=== PATIENT | female | born 1990 | race Caucasian/White ===

== ENCOUNTER 2017-11-05 21:03 | Emergency (ER) | payer MEDICAID, SELFPAY ==
[2017-11-05 21:06] VITALS: BP 147/80; PULSE 104; RESP 20; TEMP 36.7; O2SAT 100; BMI 24.6
--- NOTE | 2017-11-05 21:40 | RAD_ITS ---
STUDY: X-RAY - UNILATERAL RIBS ( RIGHT ) WITH CHEST REASON FOR EXAM: Female, 27 years old. Right-sided rib and chest pain TECHNIQUE - RIBS: 4 view(s) of the ribs. TECHNIQUE - CHEST: Single PA view of the chest. COMPARISON: None. FINDINGS - RIBS: Normal visualized ribs without a demonstrated fracture. FINDINGS - CHEST: The lungs are clear and expanded. There is no demonstrated pleural abnormality. Normal size heart. Normal mediastinum and cassi. Normal visualized pulmonary arteries. Normal visualized aortic arch and descending thoracic aorta. Normal visualized thoracic spine. Normal visualized ribs, clavicles, and shoulders. There is no demonstrated abnormality of the visualized soft tissue structures of the upper abdomen. RAD/Ribs Uni Min 3V w/PA Chest IMPRESSION: RIBS: Normal x-ray examination of the ribs. CHEST: Normal x-ray examination of the chest. Electronically Signed: Tin Layne MD at 21:56 EDT , Service support ,
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
--- NOTE | 2017-11-05 22:47 | ED.DEP ---
ED Disposition - Plan for ED Patient: Chief Complaint: Chest Other Instructions: ED Contusion Chest Wall, ED Dermatitis Non Specific Rash Prescriptions: Hydrocodone Bitart/Apap 5-325 [[place] 5MG-325MG] 1 tab PO Q4H PRN PRN 2 Days #10 tab PRN Reason: Pain Prednisone [Deltasone] 20 mg PO BID #10 tab Cyclobenzaprine [Flexeril] 10 mg PO TID PRN #20 tab PRN Reason: Muscle Spasm Referrals: Patricia Hernandez, MASK LAYOUT DESIGNER-C [Primary Care Provider] - 5-7 Days
--- NOTE | 2017-11-05 22:51 | DCINST.ED_ITS ---
ED Disposition - Plan for ED Patient: Chief Complaint: Chest Other Instructions: ED Contusion Chest Wall, ED Dermatitis Non Specific Rash Prescriptions: Hydrocodone Bitart/Apap 5-325 [[place] 5MG-325MG] 1 tab PO Q4H PRN PRN 2 Days #10 tab PRN Reason: Pain Prednisone [Deltasone] 20 mg PO BID #10 tab Cyclobenzaprine [Flexeril] 10 mg PO TID PRN #20 tab PRN Reason: Muscle Spasm Referrals: Patricia Hernandez, IGNITION SPECIALIST-C [Primary Care Provider] - 5-7 Days
[2017-11-05] MEDS: HYDROcodone Bitartrate/Apap 5/325 Tablet PO (22:54)
== END 2017-11-05 22:56 | disposition home or self-care (01) ==
LOC: ED 21:58
PROVIDERS: Emergency Provider Emergency Medicine; Family Provider Nurse Practitioner Family; PCP Nurse Practitioner Family
DX: S20.211A Contusion of right front wall of thorax, initial encounter (principal); L30.9 Dermatitis, unspecified; V89.2XXA Person injured in unspecified motor-vehicle accident, traffic, initial encounter; Y93.9 Activity, unspecified; Y92.9 Unspecified place or not applicable; F90.9 Attention-deficit hyperactivity disorder, unspecified type; Z79.899 Other long term (current) drug therapy; Z72.0 Tobacco use
CPT/HCPCS: 71101; 99282

== ENCOUNTER 2019-01-22 13:07 | Emergency (ER) | payer SELFPAY ==
[2019-01-22 13:08] VITALS: BP 129/73; PULSE 110; RESP 18; TEMP 197.6; TEMP 92; O2SAT 100; BMI 23.2
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
[2019-01-22 13:34] VITALS: RESP 16
--- NOTE | 2019-01-22 13:40 | RAD_ITS ---
STUDY: X-RAY - RIGHT FOOT CLINICAL: Female, 28 years old. [place]. TECHNIQUE: 3 view(s) of the foot. COMPARISON: None. FINDINGS: Normal talus, calcaneus, and tarsal bones. Normal visualized subtalar, talonavicular, calcaneocuboid, tarsal and tarsometatarsal articulations. Normal metatarsi. Normal metatarsophalangeal joint of the great toe. Normal tibial and fibular sesamoid bones. Normal interphalangeal joint of the great toe. Normal phalanges of the great toe. Normal second through fifth metatarsophalangeal joints. Normal interphalangeal joints and phalanges of the lesser toes. The soft tissue structures are unremarkable. RAD/Foot min 3 Views IMPRESSION: Normal x-ray examination of the foot. Electronically Signed: Von Mcmahon, at 14:20 EST , Service support ,
[2019-01-22] MEDS: Ibuprofen 600 MG Tablet PO (14:34)
[2019-01-22] MEDS: Acetaminophen 500 MG Tablet 1000 MG PO (14:35)
== END 2019-01-22 15:15 | disposition home or self-care (01) ==
PROVIDERS: Emergency Provider Emergency Medicine; Family Provider Nurse Practitioner Family; PCP Nurse Practitioner Family
DX: T69.1XXA Chilblains, initial encounter (principal); S90.31XA Contusion of right foot, initial encounter; X31.XXXA Exposure to excessive natural cold, initial encounter; W18.09XA Striking against other object with subsequent fall, initial encounter; Y93.01 Activity, walking, marching and hiking; Y92.9 Unspecified place or not applicable; Z59.0 Homelessness; F17.200 Nicotine dependence, unspecified, uncomplicated
CPT/HCPCS: 73630; 99283